=== PATIENT | male | born 1930 | race Caucasian/White ===

== ENCOUNTER 2017-05-21 10:08 | Inpatient (IN) | payer MEDICARE, OTHER ==
[~2017-05-21] VITALS: Ht 172.7 cm; Wt 83.3 kg
[~2017-05-21 10:08] MED LIST: ATOR40TA71 PO; CARAL PO; FERS325 PO; LEVO100T12 PO; PANT40TA PO
[2017-05-21 10:56] LABS: BASOPHILS % (AUTO) 0.8 % (0.0-5.0); EOSINOPHILS % (AUTO) 2.3 % (0.0-8.0); HEMATOCRIT 40.7 % (42-54); MEAN CORPUSCULAR HEMOGLOBIN 33.9 pg (27.0-33.0); MEAN CORPUSCULAR HGB CONC 34.3 g/dL (32.0-36.0); MONOCYTES % (AUTO) 11.4 % (3.0-13.0); NEUTROPHILS % (AUTO) 71.5 % (40.0-77.0); NUCLEATED RED BLOOD CELLS 0.1 % (0.0-0.19); PLATELET COUNT (AUTO) 134 K/uL (130-400); RED BLOOD CELL COUNT(AUTO) 4.11 MIL/uL (4.50-6.20); RED CELL DISTRIBUTION WIDTH 16.4 % (11.0-15.5); WHITE BLOOD COUNT (AUTO) 4.2 K/uL (4.8-10.8)
[2017-05-21 11:04] LABS: CREATININE 1.1 mg/dL (0.5-1.5); POTASSIUM 3.7 mmol/L (3.5-5.1)
[2017-05-21 11:09] LABS: ALBUMIN 3.5 g/dL (3.5-5.0); BILIRUBIN,TOTAL 0.9 mg/dL (0.2-1.0); TOTAL PROTEIN, SERUM 6.9 g/dL (6.0-8.3)
[2017-05-21 11:25] LABS: INR 1.28 (0.85-1.15); PARTIAL THROMBOPLASTIN TIME 31.5 SEC (26.3-35.5); PROTHROMBIN TIME 13.4 SEC (9.6-11.6)
[2017-05-21] MEDS ORDERED: IOPAMIDOL-370 75 ML VIAL IV ONE (12:37)
[2017-05-21] MEDS ORDERED: GUAIFENESIN-DM 200/20 MG 10 ML PO PRN (14:00)
[2017-05-21] MEDS ORDERED: ACETAMINOPHEN 325 MG TAB PO PRN ×2 (14:00)
[2017-05-21] MEDS ORDERED: ONDANSETRON HCL 4 MG/2 ML VIAL IV PRN (14:00)
[2017-05-21] MEDS ORDERED: MAG HYDROX/AL HYDROX/SIMETH ES 30 ML SUSP UDCUP PO PRN (14:00)
[2017-05-21] MEDS ORDERED: LACTULOSE 20 GM/30 ML UDCUP PO PRN (14:00)
[2017-05-21] MEDS ORDERED: ACETAMINOPHEN 325 MG TAB ONE (16:18)
[2017-05-21] MEDS ORDERED: ASPIRIN 325 MG TABLET ONE (19:13)
[2017-05-21] MEDS: FAMOTIDINE/PF 20 MG/2 ML VIAL IV SCH (21:59)
[2017-05-22 06:25] LABS: CREATININE 1.3 mg/dL (0.5-1.5); POTASSIUM 3.9 mmol/L (3.5-5.1)
[2017-05-22 07:54] VITALS: BP 170/98
[2017-05-22] MEDS: ASPIRIN 325 MG TABLET PO SCH (09:00)
[2017-05-22] MEDS: FAMOTIDINE/PF 20 MG/2 ML VIAL IV SCH ×2 (09:00→21:42)
[2017-05-22] MEDS ORDERED: FURO20TA4 PO (11:39)
[2017-05-22] MEDS ORDERED: MONT10TA21 PO (11:41)
[2017-05-22] MEDS ORDERED: LISI10TA7 PO (11:42)
[2017-05-22] MEDS ORDERED: WARF6TAB23 PO (11:45)
[2017-05-22] MEDS ORDERED: MAGN400C PO (11:50)
[2017-05-22 11:53] VITALS: BP 134/65
[2017-05-22] MEDS ORDERED: FUROSEMIDE 20 MG TABLET PO PRN (15:15)
[2017-05-22 16:28] VITALS: BP 143/72
[2017-05-22] MEDS: WARFARIN SODIUM 2 MG TAB PO SCH (17:22)
[2017-05-22] MEDS: WARFARIN SODIUM 5 MG TAB PO SCH (17:24)
[2017-05-22] MEDS: SUCRALFATE 1 GM/10 ML PO SCH ×2 (17:24→21:42)
[2017-05-22 19:51] VITALS: BP 138/76
[2017-05-22] MEDS: MONTELUKAST SODIUM 10 MG TAB PO SCH (21:42)
[2017-05-22] MEDS: FERROUS SULFATE 325 MG TABLET.DR PO SCH (21:42)
[2017-05-23] VITALS (7 sets, daily range): BP systolic 97–156; BP diastolic 60–93
[2017-05-23 05:17] LABS: HEMATOCRIT 39.8 % (42-54); MEAN CORPUSCULAR HEMOGLOBIN 34.5 pg (27.0-33.0); MEAN CORPUSCULAR HGB CONC 34.6 g/dL (32.0-36.0); MEAN CORPUSCULAR VOLUME 99.7 fL (79-99); PLATELET COUNT (AUTO) 124 K/uL (130-400); RED BLOOD CELL COUNT(AUTO) 3.99 MIL/uL (4.50-6.20); RED CELL DISTRIBUTION WIDTH 17.2 % (11.0-15.5); WHITE BLOOD COUNT (AUTO) 3.6 K/uL (4.8-10.8)
[2017-05-23 05:19] LABS: ALBUMIN 2.9 g/dL (3.5-5.0); BILIRUBIN,TOTAL 0.5 mg/dL (0.2-1.0); CREATININE 1.2 mg/dL (0.5-1.5); POTASSIUM 3.4 mmol/L (3.5-5.1); TOTAL PROTEIN, SERUM 5.8 g/dL (6.0-8.3)
[2017-05-23 05:32] LABS: INR 1.32 (0.85-1.15); PARTIAL THROMBOPLASTIN TIME 32.6 SEC (26.3-35.5); PROTHROMBIN TIME 13.8 SEC (9.6-11.6)
[2017-05-23 06:39] LABS: BAND NEUTROPHILS % (MANUAL) 8 % (0-2); EOSINOPHILS % (MANUAL) 2 % (1-6); LYMPHOCYTES % (MANUAL) 12 % (22-44); MAN.DIFF COMMENT-IMPRESSION MANUAL DIFFERENTIAL; MONOCYTES % (MANUAL) 8 % (2-9); REACTIVE LYMPHOCYTES 2 % (0-0); SEGMENTED NEUTROPHILS % 68 % (40-70)
[2017-05-23 06:40] LABS: PLATELET MORPHOLOGY COMMENT SLIGHTLY DECREASED
[2017-05-23] MEDS: LEVOTHYROXINE 112 MCG TABLET PO SCH (07:06)
[2017-05-23] MEDS: ATORVASTATIN CALCIUM 20 MG TABLET PO SCH (10:46)
[2017-05-23] MEDS: ASPIRIN 325 MG TABLET PO SCH (10:46)
[2017-05-23] MEDS: FAMOTIDINE/PF 20 MG/2 ML VIAL IV SCH ×2 (10:46→21:33)
[2017-05-23] MEDS: LISINOPRIL 10 MG TABLET PO SCH (10:46)
[2017-05-23] MEDS: FERROUS SULFATE 325 MG TABLET.DR PO SCH ×2 (10:47→21:33)
[2017-05-23] MEDS: SUCRALFATE 1 GM/10 ML PO SCH ×4 (10:47→21:33)
[2017-05-23] MEDS: MAGNESIUM OXIDE 400 MG TABLET PO SCH (10:47)
[2017-05-23] MEDS ORDERED: FLU VACC QS2017-18 36MOS UP/PF 60 MCG/0.5 ML ML IM ONE (15:00)
[2017-05-23] MEDS: WARFARIN SODIUM 2 MG TAB PO SCH (16:40)
[2017-05-23] MEDS: WARFARIN SODIUM 5 MG TAB PO SCH (16:40)
[2017-05-23] MEDS ORDERED: ENOXAPARIN SODIUM 1 MG/KG SQ SCH (21:00)
[2017-05-23] MEDS ORDERED: ENOXAPARIN SODIUM 80 MG/0.8 ML SQ ONE (21:27)
[2017-05-23] MEDS: ENOXAPARIN SODIUM 80 MG/0.8 ML SQ SCH (21:33)
[2017-05-23] MEDS: MONTELUKAST SODIUM 10 MG TAB PO SCH (21:33)
[2017-05-24 03:37] VITALS: BP 134/75
[2017-05-24 04:28] LABS: INR 1.28 (0.85-1.15); PROTHROMBIN TIME 13.4 SEC (9.6-11.6)
[2017-05-24 04:30] LABS: HEMATOCRIT 39.5 % (42-54); MEAN CORPUSCULAR HEMOGLOBIN 33.8 pg (27.0-33.0); MEAN CORPUSCULAR VOLUME 99.4 fL (79-99); NUCLEATED RED BLOOD CELLS 0.1 % (0.0-0.19); PLATELET COUNT (AUTO) 128 K/uL (130-400); RED BLOOD CELL COUNT(AUTO) 3.97 MIL/uL (4.50-6.20); RED CELL DISTRIBUTION WIDTH 16.7 % (11.0-15.5); WHITE BLOOD COUNT (AUTO) 3.2 K/uL (4.8-10.8)
[2017-05-24 05:07] LABS: BAND NEUTROPHILS % (MANUAL) 4 % (0-2); BASOPHILS % (MANUAL) 4 % (0-2); EOSINOPHILS % (MANUAL) 8 % (1-6); LYMPHOCYTES % (MANUAL) 24 % (22-44); MAN.DIFF COMMENT-IMPRESSION MANUAL DIFFERENTIAL; MONOCYTES % (MANUAL) 4 % (2-9); PLATELET MORPHOLOGY COMMENT SLIGHTLY DECREASED; SEGMENTED NEUTROPHILS % 56 % (40-70)
[2017-05-24] MEDS: LEVOTHYROXINE 112 MCG TABLET PO SCH (06:23)
[2017-05-24 07:35] VITALS: BP 133/78
[2017-05-24] MEDS: SUCRALFATE 1 GM/10 ML PO SCH ×4 (09:47→22:17)
[2017-05-24] MEDS: ATORVASTATIN CALCIUM 20 MG TABLET PO SCH (09:47)
[2017-05-24] MEDS: FAMOTIDINE/PF 20 MG/2 ML VIAL IV SCH ×2 (09:48→22:17)
[2017-05-24] MEDS: MAGNESIUM OXIDE 400 MG TABLET PO SCH (09:48)
[2017-05-24] MEDS: ENOXAPARIN SODIUM 80 MG/0.8 ML SQ SCH ×2 (09:48→22:18)
[2017-05-24] MEDS: ASPIRIN 325 MG TABLET PO SCH (09:48)
[2017-05-24] MEDS: LISINOPRIL 10 MG TABLET PO SCH (09:48)
[2017-05-24] MEDS: FERROUS SULFATE 325 MG TABLET.DR PO SCH ×2 (09:48→22:17)
[2017-05-24] MEDS ORDERED: POTASSIUM CHLORIDE 10% ELIXIR 20 MEQ/15 ML UDCUP PO PRN (10:30)
[2017-05-24] MEDS ORDERED: POTASSIUM CHLORIDE 20 MEQ ERTAB PO PRN (10:30)
[2017-05-24] MEDS ORDERED: LIDOCAINE HCL-MPF 1% 2ML VIAL IVP PRN (10:30)
[2017-05-24] MEDS ORDERED: POTASSIUM CHLORIDE 20MEQ/100ML 100 ML IV PRN (10:30)
[2017-05-24 11:14] VITALS: BP 131/74
[2017-05-24 16:15] VITALS: BP 125/70
[2017-05-24] MEDS ORDERED: FLU VACC QS2017-18 36MOS UP/PF 60 MCG/0.5 ML ML IM ONE (16:25)
[2017-05-24] MEDS: WARFARIN SODIUM 2 MG TAB PO SCH (16:36)
[2017-05-24] MEDS: WARFARIN SODIUM 5 MG TAB PO SCH (16:36)
[2017-05-24 22:09] VITALS: BP 127/76
[2017-05-24] MEDS: MONTELUKAST SODIUM 10 MG TAB PO SCH (22:17)
[2017-05-24 23:38] VITALS: BP 127/80
[2017-05-25 03:51] VITALS: BP 127/76
[2017-05-25 04:09] LABS: INR 1.34 (0.85-1.15)
[2017-05-25] MEDS: LEVOTHYROXINE 112 MCG TABLET PO SCH (06:07)
[2017-05-25 07:25] VITALS: BP 142/88
[2017-05-25] MEDS: MAGNESIUM OXIDE 400 MG TABLET PO SCH (07:48)
[2017-05-25] MEDS: SUCRALFATE 1 GM/10 ML PO SCH ×4 (07:48→21:28)
[2017-05-25] MEDS: LISINOPRIL 10 MG TABLET PO SCH (07:48)
[2017-05-25] MEDS: ASPIRIN 325 MG TABLET PO SCH (07:48)
[2017-05-25] MEDS: FAMOTIDINE/PF 20 MG/2 ML VIAL IV SCH (07:48)
[2017-05-25] MEDS: FERROUS SULFATE 325 MG TABLET.DR PO SCH ×2 (07:48→21:28)
[2017-05-25] MEDS: ATORVASTATIN CALCIUM 20 MG TABLET PO SCH (07:48)
[2017-05-25] MEDS: ENOXAPARIN SODIUM 80 MG/0.8 ML SQ SCH ×2 (07:49→21:29)
[2017-05-25 11:22] VITALS: BP 140/78
[2017-05-25] MEDS ORDERED: WARFARIN SODIUM 10 MG TABLET PO SCH (16:00)
[2017-05-25 16:05] VITALS: BP 139/80
[2017-05-25 19:00] VITALS: BP 142/93
[2017-05-25] MEDS: MONTELUKAST SODIUM 10 MG TAB PO SCH (21:28)
[2017-05-25] MEDS: FAMOTIDINE 20MG TAB 20 MG TAB PO SCH (21:29)
[2017-05-25 23:30] VITALS: BP 131/73
[2017-05-26 03:38] VITALS: BP 147/81
[2017-05-26 04:12] LABS: INR 1.38 (0.85-1.15); PROTHROMBIN TIME 14.4 SEC (9.6-11.6)
[2017-05-26] MEDS: LEVOTHYROXINE 112 MCG TABLET PO SCH (06:21)
[2017-05-26 07:25] VITALS: BP 154/98
[2017-05-26] MEDS: ATORVASTATIN CALCIUM 20 MG TABLET PO SCH (08:16)
[2017-05-26] MEDS: FERROUS SULFATE 325 MG TABLET.DR PO SCH ×2 (08:16→19:59)
[2017-05-26] MEDS: FAMOTIDINE 20MG TAB 20 MG TAB PO SCH ×2 (08:16→19:59)
[2017-05-26] MEDS: MAGNESIUM OXIDE 400 MG TABLET PO SCH (08:16)
[2017-05-26] MEDS: SUCRALFATE 1 GM/10 ML PO SCH ×4 (08:16→19:59)
[2017-05-26] MEDS: ASPIRIN 325 MG TABLET PO SCH (08:16)
[2017-05-26] MEDS: LISINOPRIL 10 MG TABLET PO SCH (08:16)
[2017-05-26] MEDS: ENOXAPARIN SODIUM 80 MG/0.8 ML SQ SCH ×2 (08:17→19:59)
[2017-05-26] MEDS ORDERED: ONDANSETRON HCL MDV 20ML 2 MG/ML VIAL ONE (10:11)
[2017-05-26 11:14] VITALS: BP 121/67
[2017-05-26] MEDS ORDERED: WARFARIN SODIUM 10 MG TABLET PO SCH (16:00)
[2017-05-26 16:19] VITALS: BP 112/68
[2017-05-26 18:57] VITALS: BP 121/68
[2017-05-26] MEDS: MONTELUKAST SODIUM 10 MG TAB PO SCH (19:59)
[2017-05-26 22:59] VITALS: BP 148/77
[2017-05-27 03:24] VITALS: BP 124/74
[2017-05-27 04:08] LABS: INR 1.6 (0.85-1.15); PROTHROMBIN TIME 16.6 SEC (9.6-11.6)
[2017-05-27] MEDS: LEVOTHYROXINE 112 MCG TABLET PO SCH (06:04)
[2017-05-27 07:00] VITALS: BP 117/74
[2017-05-27] MEDS: FERROUS SULFATE 325 MG TABLET.DR PO SCH ×2 (08:00→20:55)
[2017-05-27] MEDS: ASPIRIN 325 MG TABLET PO SCH (08:00)
[2017-05-27] MEDS: ATORVASTATIN CALCIUM 20 MG TABLET PO SCH (08:00)
[2017-05-27] MEDS: LISINOPRIL 10 MG TABLET PO SCH (08:00)
[2017-05-27] MEDS: MAGNESIUM OXIDE 400 MG TABLET PO SCH (08:00)
[2017-05-27] MEDS: SUCRALFATE 1 GM/10 ML PO SCH ×4 (08:00→20:55)
[2017-05-27] MEDS: FAMOTIDINE 20MG TAB 20 MG TAB PO SCH ×2 (08:00→20:54)
[2017-05-27] MEDS: ENOXAPARIN SODIUM 80 MG/0.8 ML SQ SCH ×2 (08:00→20:56)
[2017-05-27 10:27] LABS: HEMATOCRIT 40.6 % (42-54); MEAN CORPUSCULAR HEMOGLOBIN 33.8 pg (27.0-33.0); MEAN CORPUSCULAR HGB CONC 34.2 g/dL (32.0-36.0); MEAN CORPUSCULAR VOLUME 99.1 fL (79-99); PLATELET COUNT (AUTO) 141 K/uL (130-400); RED CELL DISTRIBUTION WIDTH 16.6 % (11.0-15.5); WHITE BLOOD COUNT (AUTO) 2.8 K/uL (4.8-10.8)
[2017-05-27 10:43] LABS: EOSINOPHILS % (MANUAL) 4 % (1-6); LYMPHOCYTES % (MANUAL) 24 % (22-44); MAN.DIFF COMMENT-IMPRESSION MANUAL DIFFERENTIAL; MONOCYTES % (MANUAL) 13 % (2-9); PLATELET MORPHOLOGY COMMENT ADEQUATE; REACTIVE LYMPHOCYTES 1 % (0-0); SEGMENTED NEUTROPHILS % 58 % (40-70)
[2017-05-27 11:00] VITALS: BP 124/68
[2017-05-27 16:00] VITALS: BP 127/78
[2017-05-27] MEDS ORDERED: WARFARIN SODIUM 10 MG TABLET PO SCH (16:00)
[2017-05-27 19:05] VITALS: BP 132/71
[2017-05-27] MEDS: CARVEDILOL 3.125 MG TABLET PO SCH (20:55)
[2017-05-27] MEDS: MONTELUKAST SODIUM 10 MG TAB PO SCH (20:55)
[2017-05-27 23:13] VITALS: BP 147/90
[2017-05-28] VITALS (7 sets, daily range): BP systolic 126–161; BP diastolic 63–85
[2017-05-28 04:53] LABS: INR 1.7 (0.85-1.15); PROTHROMBIN TIME 17.7 SEC (9.6-11.6)
[2017-05-28] MEDS: LEVOTHYROXINE 112 MCG TABLET PO SCH (05:33)
[2017-05-28] MEDS: LISINOPRIL 10 MG TABLET PO SCH (10:04)
[2017-05-28] MEDS: ATORVASTATIN CALCIUM 20 MG TABLET PO SCH (10:04)
[2017-05-28] MEDS: MAGNESIUM OXIDE 400 MG TABLET PO SCH (10:04)
[2017-05-28] MEDS: FAMOTIDINE 20MG TAB 20 MG TAB PO SCH ×2 (10:04→21:23)
[2017-05-28] MEDS: SUCRALFATE 1 GM/10 ML PO SCH ×4 (10:04→21:23)
[2017-05-28] MEDS: ASPIRIN 325 MG TABLET PO SCH (10:04)
[2017-05-28] MEDS: FERROUS SULFATE 325 MG TABLET.DR PO SCH ×2 (10:04→21:23)
[2017-05-28] MEDS: ENOXAPARIN SODIUM 80 MG/0.8 ML SQ SCH (10:04)
[2017-05-28] MEDS: CARVEDILOL 3.125 MG TABLET PO SCH ×2 (10:16→21:24)
[2017-05-28] MEDS ORDERED: WARFARIN SODIUM 10 MG TABLET PO SCH (16:15)
[2017-05-28] MEDS: MONTELUKAST SODIUM 10 MG TAB PO SCH (21:23)
[2017-05-29] MEDS: ENOXAPARIN SODIUM 80 MG/0.8 ML SQ SCH ×3 (02:58→23:31)
[2017-05-29 04:09] VITALS: BP 131/66
[2017-05-29] MEDS: LEVOTHYROXINE 112 MCG TABLET PO SCH (06:11)
[2017-05-29 07:00] VITALS: BP 131/82
[2017-05-29 07:57] LABS: INR 1.58 (0.85-1.15); PROTHROMBIN TIME 16.4 SEC (9.6-11.6)
[2017-05-29] MEDS: ATORVASTATIN CALCIUM 20 MG TABLET PO SCH (08:40)
[2017-05-29] MEDS: MAGNESIUM OXIDE 400 MG TABLET PO SCH (08:40)
[2017-05-29] MEDS: FAMOTIDINE 20MG TAB 20 MG TAB PO SCH ×2 (08:40→23:30)
[2017-05-29] MEDS: SUCRALFATE 1 GM/10 ML PO SCH ×4 (08:40→23:30)
[2017-05-29] MEDS: FERROUS SULFATE 325 MG TABLET.DR PO SCH ×2 (08:40→23:31)
[2017-05-29] MEDS: ASPIRIN 325 MG TABLET PO SCH (08:40)
[2017-05-29] MEDS: CARVEDILOL 3.125 MG TABLET PO SCH ×2 (08:41→23:30)
[2017-05-29] MEDS: LISINOPRIL 10 MG TABLET PO SCH (08:48)
[2017-05-29 11:00] VITALS: BP 129/62
[2017-05-29 16:00] VITALS: BP 114/67
[2017-05-29] MEDS ORDERED: WARFARIN SODIUM 10 MG TABLET PO SCH (16:00)
[2017-05-29 19:31] VITALS: BP 134/76
[2017-05-29] MEDS: MONTELUKAST SODIUM 10 MG TAB PO SCH (23:28)
[2017-05-30] VITALS (7 sets, daily range): BP systolic 105–164; BP diastolic 57–93
[2017-05-30 05:04] LABS: HEMATOCRIT 39.4 % (42-54); MEAN CORPUSCULAR HEMOGLOBIN 33.5 pg (27.0-33.0); MEAN CORPUSCULAR VOLUME 98.6 fL (79-99); PLATELET COUNT (AUTO) 157 K/uL (130-400); RED CELL DISTRIBUTION WIDTH 15.9 % (11.0-15.5); WHITE BLOOD COUNT (AUTO) 3.3 K/uL (4.8-10.8)
[2017-05-30 05:33] LABS: INR 1.74 (0.85-1.15); PARTIAL THROMBOPLASTIN TIME 53.6 SEC (26.3-35.5); PROTHROMBIN TIME 18.1 SEC (9.6-11.6)
[2017-05-30 05:39] LABS: POTASSIUM 3.8 mmol/L (3.5-5.1)
[2017-05-30] MEDS: LEVOTHYROXINE 112 MCG TABLET PO SCH (06:52)
[2017-05-30] MEDS: FAMOTIDINE 20MG TAB 20 MG TAB PO SCH ×2 (07:48→21:46)
[2017-05-30] MEDS: FERROUS SULFATE 325 MG TABLET.DR PO SCH ×2 (07:49→21:46)
[2017-05-30] MEDS: SUCRALFATE 1 GM/10 ML PO SCH ×4 (07:49→21:46)
[2017-05-30] MEDS: MAGNESIUM OXIDE 400 MG TABLET PO SCH (07:49)
[2017-05-30] MEDS: LISINOPRIL 10 MG TABLET PO SCH (07:49)
[2017-05-30] MEDS: CARVEDILOL 3.125 MG TABLET PO SCH ×2 (07:49→21:46)
[2017-05-30] MEDS: ATORVASTATIN CALCIUM 20 MG TABLET PO SCH (07:49)
[2017-05-30] MEDS: ASPIRIN 325 MG TABLET PO SCH (07:49)
[2017-05-30] MEDS: ENOXAPARIN SODIUM 80 MG/0.8 ML SQ SCH ×2 (07:50→21:46)
[2017-05-30] MEDS ORDERED: WARFARIN SODIUM 2.5 MG TAB PO SCH (16:00)
[2017-05-30] MEDS ORDERED: WARFARIN SODIUM 10 MG TABLET PO SCH (16:00)
[2017-05-30] MEDS: MONTELUKAST SODIUM 10 MG TAB PO SCH (21:46)
[2017-05-31 04:24] VITALS: BP 126/64
[2017-05-31 04:46] LABS: INR 2.09 (0.85-1.15); PARTIAL THROMBOPLASTIN TIME 58.5 SEC (26.3-35.5); PROTHROMBIN TIME 21.6 SEC (9.6-11.6)
[2017-05-31] MEDS: LEVOTHYROXINE 112 MCG TABLET PO SCH (05:58)
[2017-05-31 07:20] VITALS: BP 109/72
[2017-05-31] MEDS: ASPIRIN 325 MG TABLET PO SCH (07:55)
[2017-05-31] MEDS: ATORVASTATIN CALCIUM 20 MG TABLET PO SCH (07:55)
[2017-05-31] MEDS: SUCRALFATE 1 GM/10 ML PO SCH (07:55)
[2017-05-31] MEDS: CARVEDILOL 3.125 MG TABLET PO SCH (07:55)
[2017-05-31] MEDS: FAMOTIDINE 20MG TAB 20 MG TAB PO SCH (07:55)
[2017-05-31] MEDS: FERROUS SULFATE 325 MG TABLET.DR PO SCH (07:55)
[2017-05-31] MEDS: MAGNESIUM OXIDE 400 MG TABLET PO SCH (07:55)
[2017-05-31] MEDS: LISINOPRIL 10 MG TABLET PO SCH (07:55)
[2017-05-31] MEDS: ENOXAPARIN SODIUM 80 MG/0.8 ML SQ SCH (07:56)
[2017-05-31 12:29] VITALS: BP 113/64
[2017-05-31] MEDS ORDERED: WARFARIN SODIUM 10 MG TABLET PO SCH (16:00)
== END 2017-05-31 13:15 | disposition home or self-care (01) | DRG 69 ==
LOC: EDH 10:08 → OBSVTOIN 13:46 → EDHIP 13:46 → 2AH 18:41 → 2DH 18:51
PROVIDERS: ADMIT Family Medicine; ATTEND Family Medicine
PROC: 5A09357 Assistance with Respiratory Ventilation, Less than 24 Consecutive Hours, Continuous Positive Airway Pressure (ICD-10-PCS; 2017-05-22)
PROC: 5A09357 Assistance with Respiratory Ventilation, Less than 24 Consecutive Hours, Continuous Positive Airway Pressure (ICD-10-PCS; 2017-05-23)
PROC: 3E0234Z Introduction of Serum, Toxoid and Vaccine into Muscle, Percutaneous Approach (ICD-10-PCS; principal; 2017-05-24)
PROC: 5A09357 Assistance with Respiratory Ventilation, Less than 24 Consecutive Hours, Continuous Positive Airway Pressure (ICD-10-PCS; 2017-05-24)
PROC: 5A09357 Assistance with Respiratory Ventilation, Less than 24 Consecutive Hours, Continuous Positive Airway Pressure (ICD-10-PCS; 2017-05-25)
PROC: 5A09357 Assistance with Respiratory Ventilation, Less than 24 Consecutive Hours, Continuous Positive Airway Pressure (ICD-10-PCS; 2017-05-26)
PROC: 5A09357 Assistance with Respiratory Ventilation, Less than 24 Consecutive Hours, Continuous Positive Airway Pressure (ICD-10-PCS; 2017-05-27)
PROC: 5A09357 Assistance with Respiratory Ventilation, Less than 24 Consecutive Hours, Continuous Positive Airway Pressure (ICD-10-PCS; 2017-05-28)
PROC: 5A09357 Assistance with Respiratory Ventilation, Less than 24 Consecutive Hours, Continuous Positive Airway Pressure (ICD-10-PCS; 2017-05-30)
PROC: 5A09357 Assistance with Respiratory Ventilation, Less than 24 Consecutive Hours, Continuous Positive Airway Pressure (ICD-10-PCS; 2017-05-31)
DX: G45.9 Transient cerebral ischemic attack, unspecified (principal); D68.59 Other primary thrombophilia; I48.2 Chronic atrial fibrillation; D70.9 Neutropenia, unspecified; K92.2 Gastrointestinal hemorrhage, unspecified; D64.9 Anemia, unspecified; E03.9 Hypothyroidism, unspecified; E66.9 Obesity, unspecified; E78.5 Hyperlipidemia, unspecified; I10 Essential (primary) hypertension; I25.10 Atherosclerotic heart disease of native coronary artery without angina pectoris; K21.9 Gastro-esophageal reflux disease without esophagitis; Z79.01 Long term (current) use of anticoagulants; Z23 Encounter for immunization; Z82.49 Family history of ischemic heart disease and other diseases of the circulatory system; Z85.01 Personal history of malignant neoplasm of esophagus; Z87.891 Personal history of nicotine dependence; Z95.0 Presence of cardiac pacemaker; Z95.1 Presence of aortocoronary bypass graft
CPT/HCPCS: 36415; 70450; 70496; 70498; 71045; 80048; 80053; 80061; 84484; 85007; 85025; 85027; 85610; 85730; 93005; 93306; J1650; J3490; Q2038; Q9967

== ENCOUNTER 2017-08-29 13:46 | Observation (INO) | payer MEDICARE, OTHER ==
[~2017-08-29] VITALS: Ht 172.7 cm; Wt 86.2 kg
[~2017-08-29 13:46] MED LIST changes: +FURO20TA4 PO; +LISI10TA7 PO; +MAGN400C PO; +MONT10TA21 PO; -PANT40TA PO; +WARF6TAB23 PO
[2017-08-29 14:29] LABS: BASOPHILS % (AUTO) 0.4 % (0.0-5.0); EOSINOPHILS % (AUTO) 1.4 % (0.0-8.0); HEMATOCRIT 41.4 % (42-54); LYMPHOCYTES % (AUTO) 22.4 % (21.0-51.0); MEAN CORPUSCULAR HEMOGLOBIN 34.4 pg (27.0-33.0); MEAN CORPUSCULAR HGB CONC 33.8 g/dL (32.0-36.0); MEAN CORPUSCULAR VOLUME 101.7 fL (79-99); MONOCYTES % (AUTO) 9.1 % (3.0-13.0); NEUTROPHILS % (AUTO) 66.7 % (40.0-77.0); NUCLEATED RED BLOOD CELLS 0.1 % (0.0-0.19); PLATELET COUNT (AUTO) 144 K/uL (130-400); RED BLOOD CELL COUNT(AUTO) 4.07 MIL/uL (4.50-6.20); RED CELL DISTRIBUTION WIDTH 14.1 % (11.0-15.5); WHITE BLOOD COUNT (AUTO) 5.1 K/uL (4.8-10.8)
[2017-08-29 14:41] LABS: CREATININE 1.1 mg/dL (0.5-1.5); POTASSIUM 3.5 mmol/L (3.5-5.1)
[2017-08-29 14:54] LABS: ALBUMIN 3.6 g/dL (3.5-5.0); BILIRUBIN,TOTAL 0.7 mg/dL (0.2-1.0); CREATINE KINASE MB 2.2 ng/mL (0.5-3.6); TOTAL PROTEIN, SERUM 6.5 g/dL (6.0-8.3)
[2017-08-29] MEDS ORDERED: ASPIRIN 325 MG TABLET ONE (17:36)
[2017-08-29 21:21] LABS: CREATINE KINASE MB 1.6 ng/mL (0.5-3.6)
[2017-08-30 04:51] LABS: BASOPHILS % (AUTO) 0.7 % (0.0-5.0); EOSINOPHILS % (AUTO) 3.2 % (0.0-8.0); HEMATOCRIT 37.1 % (42-54); LYMPHOCYTES % (AUTO) 26.5 % (21.0-51.0); MEAN CORPUSCULAR HEMOGLOBIN 35.6 pg (27.0-33.0); MEAN CORPUSCULAR VOLUME 101.5 fL (79-99); MONOCYTES % (AUTO) 12.1 % (3.0-13.0); NEUTROPHILS % (AUTO) 57.5 % (40.0-77.0); NUCLEATED RED BLOOD CELLS 0.1 % (0.0-0.19); PLATELET COUNT (AUTO) 140 K/uL (130-400); RED BLOOD CELL COUNT(AUTO) 3.65 MIL/uL (4.50-6.20); WHITE BLOOD COUNT (AUTO) 3.6 K/uL (4.8-10.8)
[2017-08-30 05:04] LABS: CREATININE 1.1 mg/dL (0.5-1.5); POTASSIUM 3.1 mmol/L (3.5-5.1)
[2017-08-30 05:20] LABS: CREATINE KINASE MB 1.4 ng/mL (0.5-3.6)
[2017-08-30 06:15] VITALS: BP 158/89
[2017-08-30 07:53] VITALS: BP 158/86
[2017-08-30] MEDS ORDERED: HYDRALAZINE HCL 20 MG/ML VIAL IV PRN (08:15)
[2017-08-30] MEDS ORDERED: ACETAMINOPHEN 325 MG TAB PO PRN ×2 (08:15)
[2017-08-30] MEDS ORDERED: ONDANSETRON HCL 4 MG/2 ML VIAL IV PRN (08:15)
[2017-08-30] MEDS ORDERED: FAMOTIDINE 20MG TAB 20 MG TAB PO SCH (09:00)
[2017-08-30] MEDS ORDERED: ENOXAPARIN SODIUM 40 MG/0.4 ML SYRINGE SQ SCH (09:00)
[2017-08-30] MEDS ORDERED: LIDOCAINE HCL-MPF 1% 2ML VIAL IVP PRN (11:00)
[2017-08-30] MEDS ORDERED: POTASSIUM CHLORIDE 20 MEQ ERTAB PO PRN (11:00)
[2017-08-30] MEDS ORDERED: POTASSIUM CHLORIDE 20MEQ/100ML 100 ML IV PRN (11:00)
[2017-08-30] MEDS ORDERED: POTASSIUM CHLORIDE 10% ELIXIR 20 MEQ/15 ML UDCUP PO PRN (11:00)
[2017-08-30] MEDS ORDERED: PHARMACY COMMUNICATION MISC SCH (12:00)
[2017-08-30 12:13] VITALS: BP 141/77
[2017-08-30 16:00] VITALS: BP 165/91
[2017-08-30] MEDS ORDERED: WARFARIN SODIUM 7.5 MG TAB PO SCH (16:00)
[2017-08-30] MEDS ORDERED: NITROGLYCERIN 0.4 MG SL TAB SL PRN (17:15)
[2017-08-31] MEDS ORDERED: WARFARIN SODIUM 7.5 MG TAB PO SCH (16:00)
== END 2017-08-30 18:55 | disposition home or self-care (01) ==
LOC: EDH 13:46 → EDHIP 16:50 → 4BH 08-30 06:03
PROVIDERS: ADMIT Internal Medicine Nephrology; ATTEND Internal Medicine Nephrology
DX: I25.10 Atherosclerotic heart disease of native coronary artery without angina pectoris (principal); I48.2 Chronic atrial fibrillation; I10 Essential (primary) hypertension; E03.9 Hypothyroidism, unspecified; K21.9 Gastro-esophageal reflux disease without esophagitis; Z85.01 Personal history of malignant neoplasm of esophagus; Z95.0 Presence of cardiac pacemaker; Z79.899 Other long term (current) drug therapy; E78.5 Hyperlipidemia, unspecified; Z82.49 Family history of ischemic heart disease and other diseases of the circulatory system; Z95.1 Presence of aortocoronary bypass graft; Z79.82 Long term (current) use of aspirin; Z79.01 Long term (current) use of anticoagulants; I49.5 Sick sinus syndrome; I25.5 Ischemic cardiomyopathy; I48.92 Unspecified atrial flutter; K22.70 Barrett's esophagus without dysplasia; E78.00 Pure hypercholesterolemia, unspecified; Z95.5 Presence of coronary angioplasty implant and graft
CPT/HCPCS: 36415 ×2; 71045; 80048; 80053; 82550 ×3; 82553 ×3; 84484 ×3; 85025 ×2; 93005 ×3; 96372; 99285; G0378 ×26; J1650

== ENCOUNTER 2018-02-07 17:26 | Inpatient (IN) | payer MEDICARE ==
[~2018-02-07] VITALS: Ht 172.7 cm; Wt 77.8 kg
[2018-02-07 18:34] LABS: BASOPHILS % (AUTO) 0.8 % (0.0-5.0); EOSINOPHILS % (AUTO) 1.4 % (0.0-8.0); HEMATOCRIT 43.6 % (42-54); LYMPHOCYTES % (AUTO) 17.8 % (21.0-51.0); MEAN CORPUSCULAR HEMOGLOBIN 34.7 pg (27.0-33.0); MEAN CORPUSCULAR HGB CONC 33.8 g/dL (32.0-36.0); MEAN CORPUSCULAR VOLUME 102.8 fL (79-99); MONOCYTES % (AUTO) 10.8 % (3.0-13.0); NEUTROPHILS % (AUTO) 69.2 % (40.0-77.0); NUCLEATED RED BLOOD CELLS 0.1 % (0.0-0.19); PLATELET COUNT (AUTO) 136 K/uL (130-400); RED BLOOD CELL COUNT(AUTO) 4.25 MIL/uL (4.50-6.20); RED CELL DISTRIBUTION WIDTH 14.4 % (11.0-15.5); WHITE BLOOD COUNT (AUTO) 5.4 K/uL (4.8-10.8)
[2018-02-07 18:49] LABS: CREATININE 1.1 mg/dL (0.5-1.5); POTASSIUM 3.8 mmol/L (3.5-5.1)
[2018-02-07 18:51] LABS: INR 1.02 (0.85-1.15); PARTIAL THROMBOPLASTIN TIME 26.1 SEC (26.3-35.5); PROTHROMBIN TIME 10.7 SEC (9.6-11.6)
[2018-02-07 18:54] LABS: ALBUMIN 3.8 g/dL (3.5-5.0); BILIRUBIN,TOTAL 0.8 mg/dL (0.2-1.0)
[2018-02-07] MEDS ORDERED: FUROSEMIDE 20 MG TABLET PO PRN (21:30)
[2018-02-07] MEDS ORDERED: MORPHINE SULFATE 2 MG/ML 1ML SYG IV PRN (21:45)
[2018-02-07] MEDS ORDERED: ACETAMINOPHEN 325 MG TAB PO PRN (21:45)
[2018-02-07] MEDS ORDERED: ONDANSETRON HCL 4 MG/2 ML VIAL IV PRN (21:45)
[2018-02-07] MEDS ORDERED: ASPIRIN 325 MG TABLET ONE (22:06)
[2018-02-07] MEDS ORDERED: NITROGLYCERIN 1GM/1 INCH PACKET TD ONE (22:06)
[2018-02-07] MEDS: NITROGLYCERIN 1GM/1 INCH PACKET TD SCH (23:39)
[2018-02-08] VITALS (21 sets, daily range): BP systolic 124–178; BP diastolic 70–108
[2018-02-08 05:23] LABS: BASOPHILS % (AUTO) 0.7 % (0.0-5.0); EOSINOPHILS % (AUTO) 3.1 % (0.0-8.0); LYMPHOCYTES % (AUTO) 22.5 % (21.0-51.0); MEAN CORPUSCULAR HGB CONC 34.1 g/dL (32.0-36.0); MEAN CORPUSCULAR VOLUME 102.7 fL (79-99); MONOCYTES % (AUTO) 14.3 % (3.0-13.0); NEUTROPHILS % (AUTO) 59.4 % (40.0-77.0); PLATELET COUNT (AUTO) 109 K/uL (130-400); RED CELL DISTRIBUTION WIDTH 14.4 % (11.0-15.5); WHITE BLOOD COUNT (AUTO) 4.3 K/uL (4.8-10.8)
[2018-02-08] MEDS: NITROGLYCERIN 1GM/1 INCH PACKET TD SCH (05:23)
[2018-02-08 05:35] LABS: ALBUMIN 3.2 g/dL (3.5-5.0); BILIRUBIN,TOTAL 0.9 mg/dL (0.2-1.0); CREATININE 0.9 mg/dL (0.5-1.5); CRP QUANTITATIVE 4.3 mg/L (0.00-9.0); POTASSIUM 3.7 mmol/L (3.5-5.1); TOTAL PROTEIN, SERUM 6.1 g/dL (6.0-8.3)
[2018-02-08 06:13] LABS: CHOLESTEROL 284 mg/dL (<200); HDL CHOLESTEROL 45 mg/dL (29-71); LDL DIRECT 212 mg/dL (0-99); TRIGLYCERIDES 148 mg/dL (30-200)
[2018-02-08 06:14] LABS: HEMOGLOBIN A1C 5.4 % (4.0-6.0)
[2018-02-08] MEDS: LEVOTHYROXINE 112 MCG TABLET PO SCH (06:30)
[2018-02-08] MEDS ORDERED: PANTOPRAZOLE SODIUM 40 MG TABLET.DR PO SCH (09:00)
[2018-02-08] MEDS: METOPROLOL TARTRATE 25 MG TAB PO SCH ×2 (09:00→21:29)
[2018-02-08] MEDS: ATORVASTATIN CALCIUM 20 MG TABLET PO SCH (09:00)
[2018-02-08] MEDS: LISINOPRIL 10 MG TABLET PO SCH (09:00)
[2018-02-08] MEDS: SUCRALFATE 1 GM TABLET PO SCH ×3 (09:00→21:29)
[2018-02-08] MEDS ORDERED: REGADENOSON 0.4 MG/5 ML PF SYG IVP SCH (15:45)
[2018-02-08] MEDS ORDERED: PROPOFOL 10 MG/ML 20ML VIAL IV ONE (19:23)
[2018-02-08] MEDS: MONTELUKAST SODIUM 10 MG TAB PO SCH (21:29)
[2018-02-09] VITALS (9 sets, daily range): BP systolic 120–191; BP diastolic 69–107
[2018-02-09 05:16] LABS: BASOPHILS % (AUTO) 0.6 % (0.0-5.0); EOSINOPHILS % (AUTO) 1.7 % (0.0-8.0); HEMATOCRIT 39.1 % (42-54); LYMPHOCYTES % (AUTO) 14.8 % (21.0-51.0); MEAN CORPUSCULAR HEMOGLOBIN 35.2 pg (27.0-33.0); MEAN CORPUSCULAR HGB CONC 34.3 g/dL (32.0-36.0); MEAN CORPUSCULAR VOLUME 102.7 fL (79-99); MONOCYTES % (AUTO) 10.3 % (3.0-13.0); NEUTROPHILS % (AUTO) 72.6 % (40.0-77.0); NUCLEATED RED BLOOD CELLS 0.1 % (0.0-0.19); PLATELET COUNT (AUTO) 111 K/uL (130-400); RED BLOOD CELL COUNT(AUTO) 3.81 MIL/uL (4.50-6.20); RED CELL DISTRIBUTION WIDTH 14.3 % (11.0-15.5); WHITE BLOOD COUNT (AUTO) 5.8 K/uL (4.8-10.8)
[2018-02-09 05:31] LABS: CREATININE 0.8 mg/dL (0.5-1.5); POTASSIUM 3.8 mmol/L (3.5-5.1)
[2018-02-09] MEDS: NITROGLYCERIN 1GM/1 INCH PACKET TD SCH ×4 (06:13→22:28)
[2018-02-09] MEDS: LEVOTHYROXINE 112 MCG TABLET PO SCH (06:13)
[2018-02-09] MEDS: SUCRALFATE 1 GM TABLET PO SCH ×5 (06:14→21:26)
[2018-02-09] MEDS: METOPROLOL TARTRATE 25 MG TAB PO SCH ×2 (08:31→21:26)
[2018-02-09] MEDS: ATORVASTATIN CALCIUM 20 MG TABLET PO SCH (08:31)
[2018-02-09] MEDS: LISINOPRIL 10 MG TABLET PO SCH (08:31)
[2018-02-09] MEDS: PANTOPRAZOLE SODIUM 40 MG TABLET.DR PO SCH ×2 (08:32→21:27)
[2018-02-09] MEDS: GABAPENTIN 100 MG CAPSULE PO SCH ×3 (08:33→21:27)
[2018-02-09] MEDS ORDERED: PHARMACY COMMUNICATION MISC SCH (11:30)
[2018-02-09] MEDS: LANSOPRAZOLE 15 MG CAPSULE.DR PO SCH ×2 (12:12→21:26)
[2018-02-09] MEDS: CLARITHROMYCIN 500 MG TABLET PO SCH ×2 (12:13→21:26)
[2018-02-09] MEDS: AMOXICILLIN 500 MG CAPSULE PO SCH ×2 (12:20→21:25)
[2018-02-09] MEDS: MONTELUKAST SODIUM 10 MG TAB PO SCH (21:27)
[2018-02-10 03:00] VITALS: BP 110/70
[2018-02-10] MEDS: LEVOTHYROXINE 112 MCG TABLET PO SCH (06:31)
[2018-02-10] MEDS: NITROGLYCERIN 1GM/1 INCH PACKET TD SCH (06:31)
[2018-02-10 08:43] VITALS: BP 108/67
[2018-02-10] MEDS ORDERED: LANS15CA12 PO (08:55)
[2018-02-10] MEDS ORDERED: AMOX500C2 PO (08:55)
[2018-02-10] MEDS ORDERED: METO25 PO (08:55)
[2018-02-10] MEDS ORDERED: APIX5TAB PO (08:55)
[2018-02-10] MEDS ORDERED: CLAR500T PO (08:55)
[2018-02-10] MEDS: AMOXICILLIN 500 MG CAPSULE PO SCH (10:06)
[2018-02-10] MEDS: CLARITHROMYCIN 500 MG TABLET PO SCH (10:06)
[2018-02-10] MEDS: LANSOPRAZOLE 15 MG CAPSULE.DR PO SCH (10:09)
[2018-02-10] MEDS: LISINOPRIL 10 MG TABLET PO SCH (10:10)
[2018-02-10] MEDS: GABAPENTIN 100 MG CAPSULE PO SCH (10:10)
[2018-02-10] MEDS: PANTOPRAZOLE SODIUM 40 MG TABLET.DR PO SCH (10:10)
[2018-02-10] MEDS: ATORVASTATIN CALCIUM 20 MG TABLET PO SCH (10:10)
[2018-02-10] MEDS: METOPROLOL TARTRATE 25 MG TAB PO SCH (10:10)
[2018-02-10] MEDS: SUCRALFATE 1 GM TABLET PO SCH (10:10)
== END 2018-02-10 14:00 | disposition home or self-care (01) | DRG 381 ==
LOC: EDH 17:26 → OBSVTOIN 20:30 → EDHIP 20:30 → 3BH 22:05
PROVIDERS: ADMIT Internal Medicine; ATTEND Internal Medicine
PROC: 0DB58ZX Excision of Esophagus, Via Natural or Artificial Opening Endoscopic, Diagnostic (ICD-10-PCS; 2018-02-08)
PROC: 0DB78ZX Excision of Stomach, Pylorus, Via Natural or Artificial Opening Endoscopic, Diagnostic (ICD-10-PCS; 2018-02-08)
PROC: 0DB68ZX Excision of Stomach, Via Natural or Artificial Opening Endoscopic, Diagnostic (ICD-10-PCS; 2018-02-08)
PROC: 3E02340 Introduction of Influenza Vaccine into Muscle, Percutaneous Approach (ICD-10-PCS; principal; 2018-02-10)
DX: K22.11 Ulcer of esophagus with bleeding (principal); D68.59 Other primary thrombophilia; K29.01 Acute gastritis with bleeding; I11.0 Hypertensive heart disease with heart failure; I50.9 Heart failure, unspecified; K21.0 Gastro-esophageal reflux disease with esophagitis; B96.81 Helicobacter pylori [H. pylori] as the cause of diseases classified elsewhere; D64.9 Anemia, unspecified; E03.9 Hypothyroidism, unspecified; E78.5 Hyperlipidemia, unspecified; G47.30 Sleep apnea, unspecified; I48.91 Unspecified atrial fibrillation; I25.10 Atherosclerotic heart disease of native coronary artery without angina pectoris; I25.5 Ischemic cardiomyopathy; I25.2 Old myocardial infarction; Z79.01 Long term (current) use of anticoagulants; Z95.810 Presence of automatic (implantable) cardiac defibrillator; Z87.891 Personal history of nicotine dependence; Z95.1 Presence of aortocoronary bypass graft; Z85.01 Personal history of malignant neoplasm of esophagus; Z86.73 Personal history of transient ischemic attack (TIA), and cerebral infarction without residual deficits; Z23 Encounter for immunization; Z83.3 Family history of diabetes mellitus; Z82.5 Family history of asthma and other chronic lower respiratory diseases; Z82.49 Family history of ischemic heart disease and other diseases of the circulatory system; Z82.3 Family history of stroke; Z82.0 Family history of epilepsy and other diseases of the nervous system
CPT/HCPCS: 36415; 43239; 71046; 74021; 78452; 80048; 80053; 80061; 82270; 83036; 84484; 85025; 85610; 85730; 86140; 86677; 86850; 86900; 86901; 88305; 93005; 93017; 93306; 96374; A9500; G0008; J2405; J2704; J2785; Q2035